=== PATIENT | male | born 2000 | race Caucasian/White ===

== ENCOUNTER 2022-07-07 14:53 | Emergency (ER) | payer OTHER, SELFPAY ==
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
[2022-07-07 15:02] VITALS: BP 116/83; PULSE 89; RESP 14; TEMP 36.8; O2SAT 99
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
== END 2022-07-07 16:13 | disposition home or self-care (01) ==
PROVIDERS: Emergency Provider Nurse Practitioner
DX: S60.221A Contusion of right hand, initial encounter (principal); W22.8XXA Striking against or struck by other objects, initial encounter
CPT/HCPCS: 73130; 99213; G0463

== ENCOUNTER 2022-08-24 17:27 | Emergency (ER) | payer OTHER, SELFPAY ==
[2022-08-24 17:31] VITALS: BP 118/78; PULSE 89; RESP 16; TEMP 37.2; O2SAT 97
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
== END 2022-08-24 17:54 | disposition home or self-care (01) ==
PROVIDERS: Emergency Provider Nurse Practitioner Family
DX: L30.9 Dermatitis, unspecified (principal); F12.90 Cannabis use, unspecified, uncomplicated
CPT/HCPCS: 99213; G0463

== ENCOUNTER 2022-11-06 09:33 | Emergency (ER) | payer OTHER, SELFPAY ==
--- NOTE | ~2022-11-06 | XR_ITS ---
Right Humerus Technique: AP and lateral views were obtained. Clinical History: Pain Findings: No fracture or dislocation is seen. Osseous alignment is anatomic. Visualized joint spaces are grossly preserved. Soft tissues are unremarkable. Impression: Unremarkable examination. No fracture or dislocation. Reviewed, dictated and finalized at location [] VIOR[employer]IST Impression: Unremarkable examination. No fracture or dislocation.
--- NOTE | ~2022-11-06 | XR_ITS ---
Right elbow Technique: AP, oblique, and lateral views were obtained. Clinical History: Pain Findings: No acute fracture or dislocation is seen. Osseous alignment is anatomic. Joint spaces are p reserved. There is no displacement of the fat pads, and soft tissues are unremarkable. Impression: Unremarkable radiographs. Reviewed, dictated and finalized at location [] E SUPERINTENDENT Impression: Unremarkable radiographs.
[2022-11-06 09:40] VITALS: BP 113/70; PULSE 84; RESP 14; TEMP 36.7; O2SAT 100
--- NOTE | 2022-11-06 10:08 | ED.UPPEXIN ---
HPI - Extremity Injury (Upper) General Chief Complaint: Extremity Injury, Upper Stated Complaint: Right Arm Injury Time Seen by Provider: 11/06/22 10:08 Source: patient, RN notes reviewed and old records reviewed Mode of arrival: ambulatory Limitations: no limitations History of Present Illness HPI narrative: 22-year-old male who presents to [facility] with complaints of injury to his right arm which occurred yesterday when he slipped on a paper towel in his kitchen and fell onto the hardwood floor possibly hitting his arm on the table. Patient has full mobility of his right arm with some bruising noted to distal humerus area. Patient denies any tingling or numbness to his right arm or hand, no obvious deformity. MD complaint: injury to: right and arm Onset (ago): day(s) (1) Handedness: right Treatments prior to arrival: cold therapy Related Data Home Medications Medication Instructions Recorded Confirmed No Home Medications 11/06/22 11/06/22 Allergies Allergy/AdvReac Type Severity Reaction Status Date / Time No Known Allergies Allergy Verified 11/06/22 10:05 Review of Systems Review of Systems: CONSTITUTIONAL: Denies fever, chills, or sweats. CARDIOVASCULAR: Denies chest pain, palpitations, or edema. RESPIRATORY: Denies cough or dyspnea. SKIN: Denies rash or itching. Denies lacerations or abrasions MUSCULOSKELETAL: Reports pain with bruising to his right upper arm NEUROLOGIC: Denies numbness, or weakness. All systems reviewed & are unremarkable except as noted in HPI and below PMFSH Past Medical History Medical History No pertinent past medical history Surgical History Surgical History No pertinent past surgical history Family History Family History Mother Family history non-contributory Social History Social History Smoking status: Never smoker Substance use: current Substance use type: marijuana Additional living arrangements comments: Lives with fiance Gender identity (if verbalized by the patient): Male Sexual Orientation (if Verbalized by the Patient): Straight or Heterosexual Spiritual care concerns: No Comments At time of signature, agree with nursing past medical, surgical, social and family history. There is no relevant family history pertinent to the presenting complaint Exam Narrative: GENERAL: Well-appearing, well-nourished, and in no acute distress. HEAD: Normocephalic, atraumatic. EYES: PERRLA and EOMI. ENT: Nares clear, no rhinorrhea or epistaxis. Mucous membranes moist.TM's normal with good light reflex, throat pink with no lesions or exudates or swelling NECK: Supple.no lymphadenopathy CHEST: Clear to auscultation. No respiratory distress.SAO2 100% on room air HEART: Regular rate and rhythm. No murmur heard. Normal peripheral pulses. ABDOMEN: Soft, nontender, nondistended, normal active bowel sounds. EXTREMITIES: Normal range of motion. No edema. some discomfort and bruising noted to distal humerus area from fall, full mobility but with some discomfort voiced, strong pulses right arm SKIN: Warm, dry, no rash. NEURO: No focal deficits. Alert and oriented x3. Course Course Level of Care: Express Care Visit Vital Signs Vital signs: Vital Signs Temperature 36.7 C 11/06/22 09:40 Pulse Rate 84 11/06/22 09:40 Respiratory Rate 14 11/06/22 09:40 Blood Pressure 113/70 11/06/22 09:40 Pulse Oximetry 100 11/06/22 09:40 Oxygen Delivery Room Air 11/06/22 09:40 Temperature 36.7 C 11/06/22 09:40 Pulse Rate 84 11/06/22 09:40 Respiratory Rate 14 11/06/22 09:40 Blood Pressure 113/70 11/06/22 09:40 Pulse Oximetry 100 11/06/22 09:40 Oxygen Delivery Room Air 11/06/22 09:40 MDM - Extremity Injury (Upper) MDM
== END 2022-11-06 10:20 | disposition home or self-care (01) ==
PROVIDERS: Emergency Provider Registered Nurse
DX: S40.021A Contusion of right upper arm, initial encounter (principal); W01.0XXA Fall on same level from slipping, tripping and stumbling without subsequent striking against object, initial encounter; F12.90 Cannabis use, unspecified, uncomplicated
CPT/HCPCS: 73060; 73080; 99214; G0463